=== PATIENT | male | born 1965 | race Caucasian/White ===

== ENCOUNTER 2016-08-08 10:20 | Outpatient (CLI) | payer SELFPAY ==
[~2016-08-08] VITALS: Ht 170.2 cm; Wt 102.3 kg
[2016-08-08 10:35] VITALS: BP 149/88; PULSE 85; RESP 18; Ht 170.2 cm; Wt 102.3 kg
--- NOTE | 2016-08-08 12:26 | PN ---
Date/Time of Note Date/Time of Note DATE: 08/08/16 TIME: 12:21 Assessment/Plan Assessment/Plan Assessment/Plan [facility] Progress Note Date of Service: 08/08/16 Today's Impression & Plan: Overall doing well post op without major issues. No major wound problems. With above assessment, I've recommended the following for today: 1. F/u with PCP 2. F/u with us prn 3. Change toward more healthy lifestyle (more than 15 minutes counselling time spent on goals and ways to achieve them) Thank you again for your great care of this very pleasant patient and wonderful family. If there are any questions, please feel free to call me at [phone]. TOTAL VISIT TIME: 20 minutes of which more than half was spent in [id number] discussion with the patient, possibly including family, as well as coordination of care between multiple physicians and providers. Disclaimer: Inadvertent spelling or grammatical errors are likely due to EHR/ dictation software use and do not reflect on the overall quality of patient care. Updated Clinical Summary: Very pleasant 50 y/o s/p lap linda 07/17/16 at [facility] Comorbidities: 1. BMI 35.3 (previously 31.6 07/17/16) Subjective: No major events or complaints; no abd pain and no longer on pain medications; no n/v/d; no sob or cp; + flatus; + BM and normal; + activity Objective: Vitals: See below Exam: GENERAL: On exam, the patient was sitting in a chair and appeared to be comfortable and in no acute distress. ABDOMEN: Soft, nontender and nondistended. Incisions are clean, dry and intact without any evidence of erythema, edema, discharge, or hernia. There are no peritoneal signs or guarding. SKIN: Skin appears to be pink and feels warm to touch. NEUROLOGIC: Patient is awake, alert, and follows commands appropriately. Exam/Review of Systems Vital Signs Vitals Vital Signs Date Time Temp Pulse Resp B/P Pulse Ox O2 Delivery O2 Flow Rate FiO2 08/08/16 10:35 98.4 85 18 149/88 95 Room Air VIRI GAMBINO M.D. Aug 08, 2016 12:26
== END 2016-08-08 16:11 | disposition home or self-care (01) ==
LOC: HPC 10:20
PROVIDERS: ATTEND Transplant Surgery
DX: K81.9 Cholecystitis, unspecified (principal)
CPT/HCPCS: G0463